=== PATIENT | male | born 1965 | race Caucasian/White ===

== ENCOUNTER → 2020-01-21 11:42 | Outpatient (CLI) | payer OTHER, SELFPAY ==
[2020-01-22 14:34] LABS: Covid-19 Nasal PCR Sendout Lex NOT DETECTED
== END ==
PROVIDERS: PCP Internal Medicine Adolescent Medicine; Visit Provider Nurse Practitioner Family
DX: Z03.818 Encounter for observation for suspected exposure to other biological agents ruled out (principal); R05 Cough
CPT/HCPCS: U0004

== ENCOUNTER 2020-02-17 14:07 | Emergency (ER) | payer OTHER, SELFPAY ==
--- NOTE | 2020-02-17 14:42 | HMH.EDUTC ---
[facility] Disposition Clinical Impression: Exposure to COVID-19 virus Sinusitis Qualifiers: Sinusitis location: unspecified location Chronicity: acute Recurrence: non-recurrent Qualified Code(s): J01.90 - Acute sinusitis, unspecified Disposition: Home, Self-Care Condition on Discharge: Good Additional Instructions: Drink plenty of fluids. Take tylenol for pain or fever. Return if you begin to have difficulty breathing. Follow up with your regular doctor. GO TO THE ER FOR ANY WORSENING SYMPTOMS Prescriptions: Azithromycin [Z-Davey 250mg Tab*] 250 mg PO UD DOSE PK #6 tab Transmission Status: Received by [facility] #[id number] Referrals: Tae Woodruff MD [Primary Care Provider] - Time of Disposition: 15:10 Medical Decision Making - Medical Records Medical records reviewed: No: I reviewed the patient's medical records. - Suleiman Inquiry Pt receiving controlled substance: No Vital Signs: 02/17/20 14:45 02/17/20 15:12 Temperature 98.7 F 98.7 F Temperature Source Oral Pulse Rate 98 H Pulse Rate [Right Brachial] 98 H Respiratory Rate 16 16 Blood Pressure 132/98 H Blood Pressure [Right Arm] 132/98 H Blood Pressure Mean [Right Arm] 109 Blood Pressure Source [Right Arm] Automatic Cuff Blood Pressure Position [Right Arm] Sitting 02 Sat by Pulse Oximetry 97 Oxygen Delivery Method Room Air Orders (Tests/Meds): ORDERS Category Date Time Status Covid-19 Nasal PCR Sendout Harinder Routine Lab 02/17/20 14:45 Received [facility] HPI - General Stated complaint: covid exposure,headace,cold Time Seen by Provider: 02/17/20 14:52 - History of Present Illness Provider Complaint: He c/o sinus congestion for the past 3 days. He has been exposed to covid at his workplace. - Related Data Previous Rx's Medication Instructions Recorded Azithromycin [Z-Davey 250mg Tab*] 250 mg PO UD DOSE PK #6 tab 02/17/20 Allergies Allergy/AdvReac Type Severity Reaction Status Date / Time No Known Allergies Allergy Verified 02/17/20 15:00 [facility] History - Hepatitis A Screen Attestation statement:: This patient has been screened for Hepatitis A risk factors. I have reviewed the patient's past medical history: Yes ROS Obtained: Yes All systems reviewed & no additional complaints - Constitutional Constitutional: Reports system reviewed and no additional complaints, except as docu - Eyes Eyes: Reports system reviewed and no additional complaints, except as docu - ENT Ears, Nose, Mouth, and Throat: Reports as per HPI - Cardiovascular Cardiovascular: Reports system reviewed and no additional complaints, except as docu - Respiratory Respiratory: Yes system reviewed and no additional complaints, except as docu - Gastrointestinal Gastrointestingal: Reports: system reviewed and no additional complaints, except as docu Physical Exam - General General appearance: alert, in no apparent distress - Head Head exam: atraumatic, normocephalic, normal inspection - Eye Eye exam: Present: normal appearance, PERRL, EOMI - ENT ENT exam: Present: normal exam, normal oropharynx, mucous membranes moist, TM's normal bilaterally, normal external ear exam - Neck Neck exam: Present: normal inspection, full ROM, trachea midline. Absent: meningismus, lymphadenopathy - Chest Chest inspection: Present: normal inspection, symmetric chest wall rise. Absent: tenderness - Respiratory Respiratory exam: Present: normal lung sounds bilaterally. Absent: respiratory distress - Cardiovascular Cardiovascular exam: Present: regular rate, normal rhythm. Absent: JVD - Abdominal Exam Abdominal exam: Present: soft, normal bowel sounds. Absent: distention, tenderness, guarding - Extremities Exam Extremities exam: Present: normal inspection, full ROM, normal capillary refill. Absent: calf tenderness - Back Exam Back exam: Present: normal inspection. Absent: tenderness - Neurological Exam Shravan
[2020-02-17 14:45] VITALS: BP 132/98; PULSE 98; RESP 16; TEMP 37.1; O2SAT 97; BMI 27.6
[2020-02-17 15:12] VITALS: BP 132/98; PULSE 98; RESP 16; TEMP 37.1; O2SAT 97
[2020-02-19 11:27] LABS: Covid-19 Nasal PCR Sendout Lex Not Detected
== END 2020-02-17 15:15 | disposition home or self-care (01) ==
PROVIDERS: Emergency Provider Nurse Practitioner Family; PCP Internal Medicine Adolescent Medicine
DX: Z20.828 Contact with and (suspected) exposure to other viral communicable diseases (principal); J01.90 Acute sinusitis, unspecified
CPT/HCPCS: 99201; U0004

== ENCOUNTER → 2021-04-06 16:33 | Outpatient (CLI) | payer OTHER, SELFPAY | PROVIDERS: PCP Internal Medicine Adolescent Medicine; Visit Provider Nurse Practitioner Family | DX: G47.33 Obstructive sleep apnea (adult) (pediatric) (principal); G47.00 Insomnia, unspecified | CPT/HCPCS: 95806 ==

== ENCOUNTER → 2021-04-07 11:54 | Outpatient (CLI) | payer OTHER, SELFPAY ==
[2021-04-07 14:10] LABS: Troponin I < 0.01 ng/ml (0.00-0.034)
== END ==
PROVIDERS: Visit Provider Internal Medicine Adolescent Medicine
DX: R07.2 Precordial pain (principal); I10 Essential (primary) hypertension
CPT/HCPCS: 36415; 84484

== ENCOUNTER → 2021-06-01 15:25 | Outpatient (CLI) | payer OTHER, SELFPAY ==
--- NOTE | 2021-06-01 15:28 | CT_ITS ---
FINAL REPORT CLINICAL HISTORY: H/O NICOTINE DEPENDENCE, smoker for 40 years, 1 pack a day FINDINGS: Low-Dose Chest CT CTDI vol (mGy): 2.90 DLP (mGy-cm): 109.42 Axial images were obtained from the lung apex to the mid abdomen by computed tomography. Low-dose protocol was utilized. FINDINGS: CHEST: There is no axillary adenopathy. There is no hilar adenopathy. There are a few scattered mediastinal lymph nodes. The heart is proper size. The ascending aorta measures up to 4 cm which is at the upper limits of normal. There are moderate coronary artery calcifications. There is no pericardial or pleural effusion. Limited images of the upper abdomen are unremarkable. Lung window images demonstrate a 6 mm noncalcified nodule in the periphery the right upper lobe seen on image 22 series 4. There is biapical pleural and parenchymal scarring.. IMPRESSION: 6 mm noncalcified nodule in the right upper lobe. Lung RADS category 3. Recommend 6 month follow-up low-dose chest CT. Reviewed, Interpreted and Dictated by Hussein Muñiz MD Transcribed by Emily Lazar Authenticated by Hussein Muñiz MD on 06/01/2021 04:48:24 PM [facility]
== END ==
PROVIDERS: PCP Internal Medicine Adolescent Medicine; Visit Provider Nurse Practitioner Family
DX: Z87.891 Personal history of nicotine dependence (principal); Z12.2 Encounter for screening for malignant neoplasm of respiratory organs
CPT/HCPCS: 71271

== ENCOUNTER → 2021-09-21 11:45 | Outpatient (CLI) | payer OTHER, SELFPAY ==
[2021-09-21 12:11] LABS: Blood Urea Nitrogen 18 mg/dl (9-20); Estimated Glomerular Filt Rate 116 ml/min (>60); GFR (African American) 140 ML/MIN (>60)
--- NOTE | 2021-09-21 12:46 | MR_ITS ---
FINAL REPORT CLINICAL HISTORY: SCIATICA OF RIGHT SIDE. HX LUMBER SURGERY 2018. RIGHT LEG NUMBNESS AND TINGLING FOR 1 YEAR BUT GETTING WORSE. NO RECENT INJURY OR TRAUMA. 20ML PROHANCE GIVEN. FINDINGS: Multiplanar MR imaging of the lumbar spine was performed without and with contrast. On the sagittal T2-weighted images, disc degeneration is seen throughout. The vertebral alignment is normal. There is no evidence of fracture. L1-2: No significant canal stenosis or neuroforaminal narrowing is seen. L2-3: No significant canal stenosis or neuroforaminal narrowing is seen. L3-4: Mild diffuse disc bulge is present with mild bilateral neural foraminal narrowing. L4-5: [id number] diffuse disc bulge and endplate hypertrophy are present. There is [id number] bilateral neural foraminal narrowing. L5-S1: Mild diffuse disc bulge is present with mild bilateral neural foraminal narrowing. No abnormal contrast enhancement is identified. IMPRESSION: Diffuse disc bulge is at L3-4, L4-5, and L5-S1 with bilateral neural foraminal narrowing, worst at L4-5. Reviewed, Interpreted and Dictated by Hussein Muñiz MD Transcribed by Emmy Cortez Authenticated and [facility]
== END ==
PROVIDERS: PCP Internal Medicine Adolescent Medicine; Visit Provider Internal Medicine Adolescent Medicine
DX: M54.50 Low back pain, unspecified (principal); M51.36 Other intervertebral disc degeneration, lumbar region; M54.31 Sciatica, right side
CPT/HCPCS: 36415; 72158; 76376; 82565; 84520; A9576

== ENCOUNTER → 2022-03-26 12:23 | Outpatient (CLI) | payer OTHER, SELFPAY ==
--- NOTE | 2022-03-26 12:30 | XR_ITS ---
FINAL REPORT CLINICAL HISTORY: CHRONIC IDIOPATHIC CONSTIPATION FINDINGS: A PA view of the chest was obtained. The cardiac and mediastinal silhouettes are within normal limits. The lungs are clear. There is no free air beneath the diaphragm. Upright and supine views of the abdomen reveal unremarkable bowel gas pattern with a normal amount of stool. There is no evidence of small bowel obstruction. There are no abnormal calcifications. No acute osseous abnormalities identified. 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 IMPRESSION: No acute intrathoracic or intraabdominal abnormality. Reviewed, Interpreted and Dictated by Fernanda Villeda MD Transcribed by Emily Lazar Authenticated and . [facility]
[2022-03-26 13:37] LABS: Basophils # 0.2 K/mm3 (0-0.2); Basophils % 1.6 % (0.1-2.0); Eosinophils # 0.3 K/mm3 (0.0-0.4); Hematocrit 48.1 % (42.0-52.0); Hemoglobin 16.4 g/dL (14.1-18.0); Lymphocytes # 2.7 K/mm3 (0.7-4.5); Lymphocytes % 23.7 % (10-50); Mean Corpuscular HGB Conc 34.1 g/dL (31.8-35.4); Mean Corpuscular Hemoglobin 31.7 pg (27.0-31.2); Mean Corpuscular Volume 92.8 fl (80-94); Mean Platelet Volume 7.8 fl (7.4-10.4); Monocytes # 0.7 K/mm3 (0.1-1.0); Neutrophils # 7.5 K/mm3 (1.8-7.8); Neutrophils % 65.6 % (37.0-80.0); Platelet Count 350 K/mm3 (142-424); Red Blood Count 5.18 M/mm3 (4.60-6.20); Red Cell Distribution Width 12.7 % (11.5-17.5); White Blood Count 11.4 K/mm3 (4.8-10.8)
[2022-03-26 14:00] LABS: Alanine Aminotransferase 21 U/L (12-78); Albumin Level 4.4 g/dl (3.5-5.0); Albumin/Globulin Ratio 1.5 (1.1-1.8); Alkaline Phosphatase 108 U/L (38-126); Anion Gap 12.8 mEq/L (5-15); Aspartate Amino Transferase 22 U/L (17-59); Bilirubin,Total 0.5 mg/dl (0.2-1.3); Blood Urea Nitrogen 13 mg/dl (9-20); Calcium 9.1 mg/dl (8.4-10.2); Carbon Dioxide 26 mmol/L (22.0-30.0); Chloride 106 mmol/L (98-107); Chol/HDL Ratio 5.5 (1-3.5); Cholesterol 138 mg/dl (140-200); Estimated Glomerular Filt Rate 86 ml/min (>60); GFR (African American) 105 ML/MIN (>60); Glucose 99 mg/dl (74-100); HDL Cholesterol 25 mg/dl (40-60); Potassium 3.8 mmoL/L (3.5-5.1); Sodium 141 mmol/L (136-145); Total Protein,Serum 7.4 g/dl (6.3-8.2); Triglycerides 184 mg/dl (30-150); VLDL Cholesterol 37 mg/dL (0-40)
[2022-03-26 14:12] LABS: Direct LDL Cholesterol 79.29 mg/dL (100-129)
[2022-03-26 14:17] LABS: T4 (Thyroxine) 9.6 ug/dl (5.53-11.0); Triiodothryronine (T3) Uptake 31 % (23.5-40.5)
[2022-03-26 14:31] LABS: Thyroid Stimulating Hormone 0.61 uIU/mL (0.465-4.68)
[2022-03-26 14:39] LABS: Hemoglobin A1C 5.4 % (4.0-6.0)
[2022-03-26 14:51] LABS: Vitamin B12 328 pg/mL (239-931)
== END ==
PROVIDERS: PCP Internal Medicine Adolescent Medicine; Visit Provider Internal Medicine Adolescent Medicine
DX: K59.04 Chronic idiopathic constipation (principal); E78.5 Hyperlipidemia, unspecified; I10 Essential (primary) hypertension
CPT/HCPCS: 36415; 74021; 80053; 80061; 82306; 82607; 83036; 84436; 84443; 84479; 85025

== ENCOUNTER 2022-07-02 08:22 | Day surgery (SDC) | payer OTHER, SELFPAY ==
[2022-07-02 08:47] VITALS: BP 159/104; PULSE 75; RESP 18; TEMP 36.9; O2SAT 96; BMI 26.3
--- NOTE | 2022-07-02 08:59 | P.PCN_ITS ---
Procedure: Date: 07/02/22 Patient Date of :: 1965 Procedure Performed:: Esophagogastroduodenoscopy with biopsy Colonoscopy with polypectomy Indications:: Reflux Dyspepsia Abdominal bloating Diarrhea Colon cancer screening Performing Provider:: Jatin Galan MD Referring Provider:: . Sedation:: Monitored anesthesia care Procedure:: After informed consent was obtained the patient was taken to the endoscopy suite. Sedation ensued after the patient was transferred to the left lateral decubitus position. Pulse, blood pressure, and oxygen saturation were monitored throughout the procedure. The endoscope was advanced beyond the duodenal bulb. Retroflexion within the gastric lumen was accomplished. The gastroscope was carefully removed. Digital rectal exam revealed no significant abnormality. T he colonoscope was placed in position. The entire colon was evaluated. The colonoscope was carefully removed and the patient was transferred to recovery in stable condition. Please see findings and specimens below for detail. Findings:: Sliding hiatal hernia Patchy gastritis Focal patchy duodenitis Enlarged prostate with no dominant focal mass Bowel preparation moderate Fairly severe spasticity Multiple complex polyps (see specimens) Note: Mildly lobulated polyp at 30 cm not retrieved (adjacent stool burden noted). Specimens:: Antral biopsy Lobulated colon polyp at 65 cm (cold snare) Large lobulated complex partially pedunculated polyp at 15 cm (hot snare) Recommendations:: Timing of repeat colonoscopy is pending pathology but will likely be around 1-2 years secondary to limitations in visualization and size/nature of polyps. Re peat colonoscopy likely deferred to the gastroenterology service (see below) The patient will likely benefit from gastroenterology evaluation secondary to abdominal bloating and diarrhea. Complications:: No immediate Estimated blood obtained (mL): 1
[2022-07-02 09:02] VITALS: O2SAT 96
[2022-07-02 10:05] VITALS: BP 145/93; PULSE 83; RESP 14; TEMP 36.6; O2SAT 93
[2022-07-02 10:15] VITALS: BP 136/89; PULSE 84; RESP 15; O2SAT 96
[2022-07-02 10:25] VITALS: BP 122/77; PULSE 84; RESP 17; O2SAT 98
[2022-07-02 10:35] VITALS: BP 131/80; PULSE 85; RESP 17; O2SAT 98
== END 2022-07-02 10:35 | disposition home or self-care (01) ==
PROVIDERS: PCP Internal Medicine Adolescent Medicine; Visit Provider Surgery
PROC: 0DJ08ZZ Inspection of Upper Intestinal Tract, Via Natural or Artificial Opening Endoscopic (ICD-10-PCS; CPT 43235; principal; 2022-07-02 09:30)
DX: K30 Functional dyspepsia (principal); R19.7 Diarrhea, unspecified; K21.9 Gastro-esophageal reflux disease without esophagitis; R14.0 Abdominal distension (gaseous); K29.70 Gastritis, unspecified, without bleeding; B96.81 Helicobacter pylori [H. pylori] as the cause of diseases classified elsewhere; D12.4 Benign neoplasm of descending colon; D12.7 Benign neoplasm of rectosigmoid junction; K44.9 Diaphragmatic hernia without obstruction or gangrene; Z79.899 Other long term (current) drug therapy
CPT/HCPCS: 45385; 43239